=== PATIENT | male | born 1990 | race African-American/Black ===

== ENCOUNTER 2022-10-24 08:48 | Emergency (ER) | payer OTHER | END 2022-10-24 09:40 | disposition home or self-care (01) | LOC: MADERS 08:48 | DX: S71.132A Puncture wound without foreign body, left thigh, initial encounter (principal); F17.210 Nicotine dependence, cigarettes, uncomplicated; W45.8XXA Other foreign body or object entering through skin, initial encounter | CPT/HCPCS: 99283 ==